=== PATIENT | female | born 1970 ===

== ENCOUNTER 2020-03-15 09:00 | Day surgery (SDC) | payer OTHER | END 2020-03-15 21:55 | disposition home or self-care (01) | LOC: CIR.AMB 09:00 | PROVIDERS: ATTEND Obstetrics & Gynecology | DX: N84.0 Polyp of corpus uteri (principal); N72 Inflammatory disease of cervix uteri; Z20.828 Contact with and (suspected) exposure to other viral communicable diseases ==